=== PATIENT | female | born 1985 | race Caucasian/White ===

== ENCOUNTER 2019-03-28 00:31 | Emergency (ER) | payer SELFPAY ==
[2019-03-28] MEDS ORDERED: Pantoprazole 40 MG Vial IVPUSH ONE (00:41)
[2019-03-28] MEDS ORDERED: Sodium Chloride 0.9% 1,000 ML IV ONE (00:41)
[2019-03-28] MEDS ORDERED: Alum Hydrox/Mag Hydrox/Simeth 15 ML, Metoclopramide 5 MG, Lidocaine 2% 5 ML PO ONE ×3 (00:42)
[2019-03-28] MEDS ORDERED: Sodium Chloride 0.9% 20 ML ONE (00:50)
--- NOTE | 2019-03-28 01:26 | CR ---
INDICATION: chest pain. CHEST, ONE VIEW An AP radiograph of the chest was performed. Comparison: No previous studies are currently available for comparison. The lungs appear clear and no pleural effusions are identified. The cardiomediastinal silhouette and pulmonary vasculature appear normal, as do the visualized bones. IMPRESSION: No acute intrathoracic abnormality identified. THIEN MARKHAM MD [facility] Dictated by: Natanael Markham MD @ 03/28/2019 01:23:46 (Electronically Signed)
[2019-03-28] MEDS ORDERED: LORazepam 2 MG/ML SDV IVPUSH ONE (01:34)
[2019-03-28 01:54] LABS: CHLORIDE,CL 108 mmol/L (98-107); SODIUM,NA 143 mmol/L (136-145)
--- NOTE | 2019-03-28 02:24 | EDM.PDOC ---
ED HPI GENERAL MEDICAL PROBLEM - General Chief Complaint: Chest Pain Stated Complaint: CHEST PAIN Time Seen by Provider: 03/28/19 02:21 Source of Information: Reports: Patient - History of Present Illness INITIAL COMMENTS - FREE TEXT/NARRATIVE: HISTORY AND PHYSICAL: History of present illness: []Patient presents with 3 out of 10 epigastric/chest pain that began 5 hours prior she states she is under a lot of stress but does not relate what her stressors are, has been smoking more than usual she has a history of acid reflux and did provide GI cocktail and proton X which improved symptoms somewhat she was anxious appearing and I did provide Ativan which ultimately relieved symptoms no fever nausea vomiting chills sweats no current chest pain shortness breath headache dizziness palpitation no bowel or urine symptoms Initial pain was not associated with diaphoresis or shortness of breath no radiation arm neck or jaw Review of systems: As per history of present illness and below otherwise all systems reviewed and negative. Past medical history: As per history of present illness and as reviewed below otherwise noncontributory. Surgical history: As per history of present illness and as reviewed below otherwise noncontributory. Social history: No reported history of drug or alcohol abuse. Family history: As per history of present illness and as reviewed below otherwise noncontributory. Physical exam: HEENT: Atraumatic, normocephalic, pupils reactive, negative for conjunctival pallor or scleral icterus, mucous membranes moist, throat clear, neck supple, nontender, trachea midline. Lungs: Clear to auscultation, breath sounds equal bilaterally, chest nontender. Heart: S1S2, regular, negative for clicks, rubs, or JVD. Abdomen: Soft, nondistended, nontender. Negative for masses or hepatosplenomegaly. Negative for costovertebral tenderness. Pelvis: Stable nontender. Genitourinary: Deferred. Rectal: Deferred. Extremities: Atraumatic, negative for cords or calf pain. Neurovascular unremarkable. Neuro: Awake, alert, oriented. Cranial nerves II through XII unremarkable. Cerebellum unremarkable. Motor and sensory unremarkable throughout. Exam nonfocal. Diagnostics: [EBC CMP UA troponin lipase EKG Chest 1 view ] Therapeutics: [ normal saline Proton X GI cocktail Van 1 mg IV ] Impression: [ anxiety GERD ] Definitive disposition and diagnosis as appropriate pending reevaluation and review of above. chest Pain Score (Numeric/FACES): 7 - Related Data Allergies Allergy/AdvReac Type Severity Reaction Status Date / Time codeine Allergy Itching Verified 03/28/19 00:35 Home Meds: Home Meds . [No Known Home Meds] 03/28/19 [History] Past Medical History HEENT History: Reports: None Cardiovascular History: Reports: None Other Respiratory History: childhood asthma QI SPECIALIST History: Reports: None Musculoskeletal History: Reports: None Neurological History: Reports: None Psychiatric History: Reports: None Endocrine/Metabolic History: Reports: None Hematologic History: Reports: None Immunologic History: Reports: None Oncologic (Cancer) History: Reports: None Dermatologic History: Reports: None - Infectious Disease History Infectious Disease History: Reports: Chicken Pox - Past Surgical History GI Surgical History: Reports: Cholecystectomy Female Surgical History: Reports: Hysterectomy, Tubal Ligation Social & Family History - Family History Family Medical History: Noncontributory - Tobacco Use Smoking Status *Q: Current Every Day Smoker Years of Tobacco use: 12 Packs/Tins Daily: 1 - Recreational Drug Use Recreational Drug Use: No ED ROS GENERAL - Review of Systems Review Of Systems: See Below ED EXAM, GENERAL - Physical Exam Exam: See Below Course - Vital Signs Last Recorded V/S: Last Vital Signs Temp 97.5 F 03/28/19 00:35 Pulse 89 03/28/19 00:35 Resp 18 03/28/19 00:35 BP 151/93 H 03/28/19 00:35 Pulse Ox 100 03/28/19 00:35 - Orders/Labs/Meds Orders: Active Orders 24 hr Category Date Time Status EKG Documentation Completion [RC] STAT Care 03/28/19 00:48 Active UA RFX JENNIFER AND CULT IF INDIC [URIN] Stat Lab 03/28/19 00:42 Ordered Labs: Laboratory Tests 03/28/19 03/28/19 03/28/19 Range/Units 00:43 00:43 00:43 WBC 11.12 H (4.0-11.0) K/uL RBC 4.43 (4.30-5.90) M/uL Hgb 13.0 (12.0-16.0) g/dL Hct 40.1 (36.0-46.0) % MCV 90.5 (80.0-98.0) fL MCH 29.3 (27.0-32.0) pg MCHC 32.4 (31.0-37.0) g/dL RDW Std Deviation 44.1 (28.0-62.0) fl RDW Coeff of Kahlil 13 (11.0-15.0) % Plt Count 249 (150-400) K/uL MPV 10.10 (7.40-12.00) fL Neut % (Auto) 65.5 (48.0-80.0) % Lymph % (Auto) 27.7 (16.0-40.0) % Griggs % (Auto) 5.7 (0.0-15.0) % Eos % (Auto) 0.7 (0.0-7.0) % Baso % (Auto) 0.4 (0.0-1.5) % Neut # (Auto) 7.3 H (1.4-5.7) K/uL Lymph # (Auto) 3.1 H (0.6-2.4) K/uL Griggs # (Auto) 0.6 (0.0-0.8) K/uL Eos # (Auto) 0.1 (0.0-0.7) K/uL Baso # (Auto) 0.0 (0.0-0.1) K/uL Nucleated RBC % 0.0 /100WBC Nucleated RBCs # 0 K/uL Sodium 143 (136-145) mmol/L Potassium 3.2 L (3.5-5.1) mmol/L Chloride 108 H (98-107) mmol/L Carbon Dioxide 28.1 (21.0-32.0) mmol/L BUN 17 (7.0-18.0) mg/dL Creatinine 0.6 (0.6-1.0) mg/dL Est Cr Clr Drug Dosing 114.08 mL/min Estimated GFR (MDRD) > 60.0 ml/min Glucose 81 (74-106) mg/dL Calcium 8.6 (8.5-10.1) mg/dL Total Bilirubin 0.3 (0.2-1.0) mg/dL AST 10 L (15-37) IU/L ALT 20 (14-63) IU/L Alkaline Phosphatase 89 (46-116) U/L Troponin I < 0.050 (0.000-0.056) ng/mL Total Protein 6.5 (6.4-8.2) g/dL Albumin 3.6 (3.4-5.0) g/dL Globulin 2.9 (2.6-4.0) g/dL Albumin/Globulin Ratio 1.2 (0.9-1.6) Lipase 144 (73-393) U/L Meds: Medications Discontinued Medications Generic Name Dose Route Start Last Admin Trade Name Santy PRN Reason Stop Dose Admin Al Hydroxide/Mg Hydroxide 15 0 ml 03/28/19 00:42 03/28/19 01:00 ml/ Metoclopramide HCl 5 mg/ PO 03/28/19 00:43 1 each Lidocaine HCl 5 ml ONETIME ONE Administration Sodium Chloride 1,000 mls @ 999 mls/hr 03/28/19 00:41 03/28/19 00:58 Normal Saline IV 03/28/19 01:41 999 mls/hr STAT ONE Administration Sodium Chloride Confirm 03/28/19 00:50 03/28/19 01:02 Normal Saline Administered 03/28/19 00:51 1 mls/hr Dose Administration 20 mls @ as directed .ROUTE .STK-MED ONE Lorazepam 1 mg 03/28/19 01:34 03/28/19 01:48 Ativan IVPUSH 03/28/19 01:35 1 mg ONETIME ONE Administration Pantoprazole Sodium 80 mg 03/28/19 00:41 03/28/19 01:02 Protonix Iv IVPUSH 03/28/19 00:42 80 mg .BOLUS ONE Administration Departure - Departure Time of Disposition: 02:23 Disposition: Home, Self-Care 01 Condition: Good Clinical Impression: Anxiety, GERD (gastroesophageal reflux disease) - Discharge Information Referrals: PCP,None [Primary Care Provider] - Additional Instructions: The following information is given to patients seen in the emergency department who are being discharged to home. This information is to outline your options for follow-up care. We provide all patients seen in our emergency department with a follow-up referral. The need for follow-up, as well as the timing and circumstances, are variable depending upon the specifics of your emergency department visit. If you don't have a primary care physician on staff, we will provide you with a referral. We always advise you to contact your personal physician following an emergency department visit to inform them of the circumstance of the visit and for follow-up with them and/or the need for any referrals to a consulting specialist. The emergency department will also refer you to a specialist when appropriate. This referral assures that you have the opportunity for follow-up care with a specialist. All of these measure are taken in an effort to provide you with optimal care, which includes your follow-up. Under all circumstances we always encourage you to contact your private physician who remains a resource for coordinating your care. When calling for follow-up care, please make the office aware that this follow-up is from your recent emergency room visit. If for any reason you are refused follow-up, please contact the [facility] emergency department at and asked to speak to the emergency department charge nurse. - My Orders Last 24 Hours: My Active Orders 03/28/19 00:42 UA RFX JENNIFER AND CULT IF INDIC [URIN] Stat 03/28/19 00:48 EKG Documentation Completion [RC] STAT - Assessment/Plan Last 24 Hours: My Active Orders 03/28/19 00:42 UA RFX JENNIFER AND CULT IF INDIC [URIN] Stat 03/28/19 00:48 EKG Documentation Completion [RC] STAT
== END 2019-03-28 02:46 | disposition home or self-care (01) ==
LOC: MW.ED 00:31
DX: K21.9 Gastro-esophageal reflux disease without esophagitis (principal); F41.9 Anxiety disorder, unspecified; J45.909 Unspecified asthma, uncomplicated; F17.210 Nicotine dependence, cigarettes, uncomplicated; Z90.710 Acquired absence of both cervix and uterus; Z90.49 Acquired absence of other specified parts of digestive tract
CPT/HCPCS: 36415; 71045; 80053; 83690; 84484; 85025; 93005; 96361; 96374; 96375; 99285; A9270; C9113; J2060; J7040; 99284

== ENCOUNTER 2019-06-24 05:36 | Emergency (ER) | payer SELFPAY | END 2019-06-24 05:50 | disposition left against medical advice (07) | LOC: MW.ED 05:36 | DX: Z53.21 Procedure and treatment not carried out due to patient leaving prior to being seen by health care provider (principal) ==

== ENCOUNTER 2022-03-26 04:21 | Emergency (ER) | payer MEDICAID | END 2022-03-26 04:50 | disposition home or self-care (01) | LOC: MW.ED 04:21 | DX: F11.23 Opioid dependence with withdrawal (principal); Z88.1 Allergy status to other antibiotic agents; Z88.5 Allergy status to narcotic agent | CPT/HCPCS: 99284 ==

== ENCOUNTER 2022-07-26 08:49 | Emergency (ER) | payer MEDICAID ==
[2022-07-26 09:44] LABS: CARBON DIOXIDE,CO2 30.9 mmol/L (21.0-32.0); POTASSIUM,K 3.3 mmol/L (3.5-5.1)
== END 2022-07-26 11:33 | disposition home or self-care (01) ==
LOC: MW.ED 08:49
DX: R30.0 Dysuria (principal); Z88.1 Allergy status to other antibiotic agents; Z88.5 Allergy status to narcotic agent
CPT/HCPCS: 36415; 74176; 74176-26; 80053; 81001; 81025; 83690; 85025; 87086; 99284

== ENCOUNTER 2022-09-06 18:33 | Emergency (ER) | payer MEDICAID ==
[2022-09-06] MEDS ORDERED: traMADol 50 MG Tab PO ONE (20:06)
[2022-09-06] MEDS ORDERED: Cephalexin 500 MG Cap PO ONE (20:06)
[2022-09-06] MEDS ORDERED: Ibuprofen 600 MG Tab PO ONE (20:06)
== END 2022-09-06 20:26 | disposition home or self-care (01) ==
LOC: MW.ED 18:33
DX: K04.7 Periapical abscess without sinus (principal); F17.210 Nicotine dependence, cigarettes, uncomplicated; Z88.1 Allergy status to other antibiotic agents; Z88.5 Allergy status to narcotic agent; Z79.899 Other long term (current) drug therapy; Z90.49 Acquired absence of other specified parts of digestive tract; Z90.710 Acquired absence of both cervix and uterus
CPT/HCPCS: 99283; A9270

== ENCOUNTER 2022-09-09 11:27 | Inpatient (IN) | payer MEDICAID ==
[2022-09-09] MEDS ORDERED: Sodium Chloride 0.9% 2.5 ML Syringe FLUSH PRN (13:44)
[2022-09-09] MEDS ORDERED: Sodium Chloride 0.9% 10 ML Syringe FLUSH PRN (13:44)
[2022-09-09] MEDS ORDERED: HYDROmorphone 1 MG/ML Syringe IVPUSH ONE ×2 (13:51→18:22)
[2022-09-09] MEDS ORDERED: Ondansetron 4 MG/2 ML SDV IVPUSH ONE (13:51)
[2022-09-09 15:18] LABS: CARBON DIOXIDE,CO2 31.7 mmol/L (21.0-32.0); POTASSIUM,K 4.3 mmol/L (3.5-5.1)
[2022-09-09] MEDS ORDERED: Iopamidol 755 MG/ML 500 ML Multipack Bottle IVPUSH STA (15:38)
[2022-09-09] MEDS ORDERED: Cefepime 2 GM in Premix Bag 1 BAG IV ONE (16:57)
[2022-09-09] MEDS ORDERED: VANCOmycin 1.5 GM/300 ML 1.5 GM in Premix Bag 1 BAG IV ONE (17:15)
[2022-09-09] MEDS ORDERED: Cefepime 2 GM in Sodium Chloride 0.9% 50 ML IV ONE (17:30)
[2022-09-09] MEDS ORDERED: Ampicillin/Sulbactam Na 3 GM in Sodium Chloride 0.9% 100 ML IV ONE (20:31)
[2022-09-09] MEDS ORDERED: Acetaminophen 325 MG Tab PO PRN (22:59)
[2022-09-10] MEDS: HYDROmorphone 1 MG/ML Syringe IVPUSH PRN ×6 (01:04→21:21)
[2022-09-10] MEDS: Ampicillin/Sulbactam Na 3 GM in Sodium Chloride 0.9% 100 ML IV SCH ×4 (01:04→20:07)
[2022-09-10] MEDS: VANCOmycin 1.25 GM/250 ML 250 ML IV SCH ×2 (05:23→18:09)
[2022-09-10 07:35] LABS: CARBON DIOXIDE,CO2 29.1 mmol/L (21.0-32.0); POTASSIUM,K 3.6 mmol/L (3.5-5.1)
[2022-09-10] MEDS: Ibuprofen 400 MG Tab PO PRN (20:06)
[2022-09-11] MEDS: Ampicillin/Sulbactam Na 3 GM in Sodium Chloride 0.9% 100 ML IV SCH ×2 (02:30→08:23)
[2022-09-11] MEDS: HYDROmorphone 1 MG/ML Syringe IVPUSH PRN (02:37)
[2022-09-11] MEDS: VANCOmycin 1.25 GM/250 ML 250 ML IV SCH (06:19)
[2022-09-11 07:37] LABS: CARBON DIOXIDE,CO2 28.5 mmol/L (21.0-32.0); POTASSIUM,K 3.1 mmol/L (3.5-5.1)
[2022-09-11] MEDS ORDERED: Potassium Chloride 20 MEQ Tab.ER PO ONE ×2 (07:49→11:00)
[2022-09-11] MEDS: Ibuprofen 400 MG Tab PO PRN (08:24)
[2022-09-11] MEDS ORDERED: Ampicillin/Sulbactam Na 3 GM in Sodium Chloride 0.9% 100 ML IV SCH (14:00)
== END 2022-09-11 13:55 | disposition home or self-care (01) | DRG 158 ==
LOC: MW.ED 11:27 → MW.MS 20:45
PROVIDERS: ADMIT Internal Medicine; ATTEND Internal Medicine
DX: K04.7 Periapical abscess without sinus (principal); L02.01 Cutaneous abscess of face; L03.211 Cellulitis of face; F17.210 Nicotine dependence, cigarettes, uncomplicated; H54.7 Unspecified visual loss; Z88.1 Allergy status to other antibiotic agents; Z88.5 Allergy status to narcotic agent; Z90.710 Acquired absence of both cervix and uterus; Z90.49 Acquired absence of other specified parts of digestive tract; Z98.51 Tubal ligation status
CPT/HCPCS: 36415; 70487; 70487-26; 80048; 80053; 80202; 83605; 83735; 84100; 85025; 87040; 96365; 96367; 96368; 96375; 96376; 99221; 99232; 99239; 99284-25; 99285; A9270-GY; J0295; J0692; J1170; J2405; J3370; J3490; J7050; Q9967

== ENCOUNTER 2024-01-06 01:04 | Emergency (ER) | payer MEDICAID ==
[2024-01-06] MEDS: Ibuprofen 800 MG Tab PO ONE (01:23)
[2024-01-06] MEDS: Amoxicillin/Clavulanate K 875-125 MG Tab PO ONE (01:23)
== END 2024-01-06 01:31 | disposition home or self-care (01) ==
LOC: MW.ED 01:04
DX: K04.7 Periapical abscess without sinus (principal); Z88.1 Allergy status to other antibiotic agents; Z88.5 Allergy status to narcotic agent; Z79.899 Other long term (current) drug therapy; Z75.8 Other problems related to medical facilities and other health care
CPT/HCPCS: 99283; A9270